=== PATIENT | female | born 1995 | race American Indian/Alaskan Native ===

== ENCOUNTER 2017-02-03 21:58 | Emergency (ER) | payer OTHER ==
[2017-02-03 22:16] VITALS: RESP 20
[2017-02-03 23:34] VITALS: BP 123/86; PULSE 85; TEMP 98.4; O2SAT 99
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
== END 2017-02-03 23:57 | disposition home or self-care (01) ==
LOC: C.ER 21:58
DX: Z04.41 Encounter for examination and observation following alleged adult rape (principal)